=== PATIENT | male | born 1990 | race Caucasian/White ===

== ENCOUNTER 2016-11-03 09:58 | Emergency (ER) | payer MEDICARE ==
[~2016-11-03] VITALS: Ht 162.6 cm; Wt 69.8 kg
--- NOTE | 2016-11-03 15:32 | NUR ---
PT & MOTHER NOW STATE HE HAS HX ANXIETY, ARTHRITIS & RT ACHILLES SURGERY. CL
[2016-11-03 15:40] VITALS: BP 95/68
== END 2016-11-03 11:30 | disposition home or self-care (01) ==
LOC: EDUNIT# 09:58 → ED 10:01
DX: L02.413 Cutaneous abscess of right upper limb (principal)
CPT/HCPCS: 99282; 99283